=== PATIENT | female | born 1960 | race Caucasian/White ===

== ENCOUNTER 2018-07-27 13:06 | Observation (INO) ==
--- NOTE | 2018-07-27 13:50 | XR ---
EXAM DATE: 07/27/2018 1:39 PM EST AGE/SEX: 57 years / Female INDICATIONS: Short of breath and chest pain, sore throat CLINICAL DATA: This is the patient's initial encounter. Patient reports that signs and symptoms have been present for 4 - 6 days and indicates a pain score of 5/10. MEDICAL/SURGICAL HISTORY: None. None. COMPARISON: No prior exams available for comparison. FINDINGS: A single AP view of the chest demonstrates the lungs to be symmetrically aerated without evidence of mass, infiltrate or effusion. The cardiomediastinal contours are unremarkable. Osseous structures a re intact. CONCLUSION: Negative for acute process Electronically signed by: Madan Khan MD Board Certified Radiologist 07/27/2018 1:49 PM EST
[2018-07-27 13:51] LABS: Baso # (Auto) 0.1 th/mm3 (0.0-0.2); Baso % (Auto) 0.9 % (0.0-2.0); Eos # (Auto) 0.1 th/mm3 (0.0-0.4); Eos % (Auto) 1.5 % (0.0-4.0); Hematocrit 41.6 % (35.0-46.0); Hemoglobin 14.4 gm/dL (11.6-15.3); Lymph # (Auto) 2.3 th/mm3 (1.0-4.8); Lymph % (Auto) 24.5 % (9.0-44.0); Mean Corpuscular HGB Conc 34.5 % (32.0-36.0); Mean Corpuscular Hemoglobin 31.9 pg (27.0-34.0); Mean Corpuscular Volume 92.3 fL (80.0-100.0); Mean Platelet Volume 8.5 fL (7.0-11.0); Mono # (Auto) 0.7 th/mm3 (0.0-0.9); Mono % (Auto) 7.5 % (0.0-8.0); Neut # (Auto) 6.2 th/mm3 (1.8-7.7); Neut % (Auto) 65.6 % (16.0-70.0); Platelet Count 207 th/mm3 (150-450); Red Blood Count 4.51 mil/mm3 (4.00-5.30); Red Cell Distribution Width 15.1 % (11.6-17.2); White Blood Count 9.4 th/mm3 (4.0-11.0)
[2018-07-27 13:54] LABS: Alanine Aminotransferase 42 U/L (10-53); Albumin 3.3 g/dL (3.4-5.0); Anion Gap 8 meq/L (5-15); Aspartate Aminotransferase 49 U/L (15-37); Blood Urea Nitrogen 8 mg/dL (7-18); Calcium 8.6 mg/dL (8.5-10.1); Carbon Dioxide 26.3 meq/L (21.0-32.0); Chloride 109 meq/L (98-107); Glomerular Filtration Rate 74 mL/min (>89); Glucose,Random 99 mg/dL (74-106); Lipase 43 U/L (73-393); Potassium 3.7 meq/L (3.5-5.1); Sodium 143 meq/L (136-145)
[2018-07-27 13:58] LABS: Alkaline Phosphatase 118 U/L (45-117); Total Protein 6.9 g/dL (6.4-8.2)
[2018-07-27 14:17] LABS: Troponin I 1.98 ng/mL (0.02-0.05)
--- NOTE | 2018-07-27 14:23 | ED ---
HPI General Chief Complaint: Chest Pain Stated Complaint: Cardiac Time Seen by Provider: 07/27/18 13:10 Source: patient and EMS Mode of arrival: EMS Limitations: no limitations History of Present Illness HPI narrative: 57 yo F c/o shortness of breath for about three days worse with exertion. + Chest pain yesterday and day prior, intermittent, retrosternal, associated with hand paresthesias. No CP in ED today however. Pt left work early two days prior 2/2 dyspnea. + KEYES more than roughly 20 feet. No fever/ chills. No hx htn, hld or dm2. + Vaping hx. Denies family hx CAD. Sister evidently has a hx of PE. Pt also reports severe distress over past few months. Occasionally xanax has been helpful. Related Data Home Medications Medication Instructions Recorded Confirmed alprazolam [Xanax] 0.25 mg PO BID PRN 07/27/18 07/27/18 fluoxetine 40 mg PO DAILY 07/27/18 07/27/18 gabapentin 800 mg PO DAILY 07/27/18 07/27/18 quetiapine 400 mg PO BID 07/27/18 07/27/18 temazepam 30 mg PO QDRHS 07/27/18 07/27/18 Allergies Allergy/AdvReac Type Severity Reaction Status Date / Time No Known Allergies Allergy Severe UNKNOWN Uncoded 01/23/11 15:45 Review of Systems ROS: all other systems reviewed are negative [facility] Social History Social History Smoking Status: Unknown if ever smoked How Often Do You Have a Drink Containing Alcohol: Unable to Obtain Immunization History Tetanus Immunization: Unsure Exam Narrative Exam Narrative: GENERAL: 57 yo F, WNWD, mildly anxious SKIN: Focused skin assessment warm/dry. HEAD: Atraumatic. Normocephalic. EYES: Pupils equal and round. No scleral icterus. No injection or drainage. ENT: No nasal bleeding or discharge. Mucous membranes pink and moist. NECK: Trachea midline. No JVD. CARDIOVASCULAR: Regular rate and rhythm. No murmur appreciated. RESPIRATORY: No accessory muscle use. Clear to auscultation. Breath sounds equal bilaterally. GASTROINTESTINAL: Abdomen soft, non-tender, nondistended. Hepatic and splenic margins not palpable. MUSCULOSKELETAL: No obvious deformities. No clubbing. No cyanosis. No edema. NEUROLOGICAL: Awake and alert. No obvious cranial nerve deficits. Motor grossly within normal limits. Normal speech. PSYCHIATRIC: Appropriate mood and affect; insight and judgment normal. Course Initial Documented Vital Signs Temperature 98.3 F 07/27/18 13:08 Pulse Rate 102 H 07/27/18 13:08 Respiratory Rate 22 07/27/18 13:08 Blood Pressure 155/100 H 07/27/18 13:08 Pulse Oximetry 98 07/27/18 13:08 Last Documented Vital Signs Temperature 98.3 F 07/27/18 13:08 Pulse Rate 108 H 07/27/18 14:49 Respiratory Rate 20 07/27/18 14:49 Blood Pressure 134/100 H 07/27/18 14:49 Pulse Oximetry 100 07/27/18 14:49 Critical Care Time Critical Care Time: Yes Total Critical Care Time: 35 Attestation: Aggregate critical care time was 35 minutes. Time to perform other separately billable procedures was not included in the critical care time. My time did not include minutes spent treating any other patients simultaneously or on activities that did not directly contribute to the patient's treatment. The services I provided to this patient were to treat and/or prevent clinically significant deterioration that could result in: myocardial infarction, disability I provided critical care services requiring my management, as noted below: Chart data review, documentation time, medication orders and management, vital sign assessments/reviewing monitor data, ordering and reviewing lab tests, ordering and interpreting/reviewing x-rays and diagnostic studies, care of the patient and discussion of the patient with the admitting physicians. Medical Decision Making MDM Narrative Medical decision making narrative: EKG sinus, rate 99, no ST elevation, normal axis Tn 1.98 - Pt has no chest pain in ED however does have shortness of breath, which is also the chief complaint and reason for coming to ED today. CBC essentially normal CMP essentially normal BNP 220 Lipase normal Heparin started in ED. Nitro, aspirin, metoprolol started. d/w Dr Martinez: NPO p midnight, 2d echo, iv lasix, heparin, nitro, asa d/w patient who is amenable with plan Call to admitted service at 230pm. d/w Dr Esparza for [facility] at 250pm, CT pulmonary angiogram pending at time of sign out. Medical Screen Exam Complete: Yes Emergency Medical Condition: Yes Lab Data Result diagrams: 07/27/18 13:22 07/27/18 13:22 Lab Results 07/27/18 07/27/1818 Range/Units 13:22 13:22 13:22 WBC 9.4 (4.0-11.0) th/mm3 RBC 4.51 (4.00-5.30) mil/mm3 Hgb 14.4 (11.6-15.3) gm/dL Hct 41.6 (35.0-46.0) % MCV 92.3 (80.0-100.0) fL MCH 31.9 (27.0-34.0) pg MCHC 34.5 (32.0-36.0) % RDW 15.1 (11.6-17.2) % Plt Count 207 (150-450) th/mm3 MPV 8.5 (7.0-11.0) fL Neut % (Auto) 65.6 (16.0-70.0) % Lymph % (Auto) 24.5 (9.0-44.0) % Hudspeth % (Auto) 7.5 (0.0-8.0) % Eos % (Auto) 1.5 (0.0-4.0) % Baso % (Auto) 0.9 (0.0-2.0) % Neut # (Auto) 6.2 (1.8-7.7) th/mm3 Lymph # (Auto) 2.3 (1.0-4.8) th/mm3 Hudspeth # (Auto) 0.7 (0.0-0.9) th/mm3 Eos # (Auto) 0.1 (0.0-0.4) th/mm3 Baso # (Auto) 0.1 (0.0-0.2) th/mm3 WBC Differential . Differential Comment Auto diff final Sodium 143 (136-145) meq/L Potassium 3.7 (3.5-5.1) meq/L Chloride 109 H (98-107) meq/L Carbon Dioxide 26.3 (21.0-32.0) meq/L Anion Gap 8 (5-15) meq/L BUN 8 (7-18) mg/dL Creatinine 0.80 (0.50-1.00) mg/dL Estimated GFR 74 L (>89) mL/min Random Glucose 99 (74-106) mg/dL Calcium 8.6 (8.5-10.1) mg/dL Magnesium 2.0 (1.5-2.5) mg/dL Total Bilirubin 0.4 (0.2-1.0) mg/dL AST 49 H (15-37) U/L ALT 42 (10-53) U/L Alkaline Phosphatase 118 H (45-117) U/L Troponin I 1.98 H* (0.02-0.05) ng/mL B-Natriuretic Peptide 220 H (0-100) pg/mL Total Protein 6.9 (6.4-8.2) g/dL Albumin 3.3 L (3.4-5.0) g/dL Lipase 43 L (73-393) U/L Urine Opiates Screen (Neg) Ur Barbiturates Screen (Neg) Ur Amphetamines Screen (Neg) U Benzodiazepines Scrn (Neg) Urine Cocaine Screen (Neg) U Cannabinoids Screen (Neg) Serum Alcohol Less than 3 (0-5) mg/dL 07/27/18 Range/Units 14:06 WBC (4.0-11.0) th/mm3 RBC (4.00-5.30) mil/mm3 Hgb (11.6-15.3) gm/dL Hct (35.0-46.0) % MCV (80.0-100.0) fL MCH (27.0-34.0) pg MCHC (32.0-36.0) % RDW (11.6-17.2) % Plt Count (150-450) th/mm3 MPV (7.0-11.0) fL Neut % (Auto) (16.0-70.0) % Lymph % (Auto) (9.0-44.0) % Hudspeth % (Auto) (0.0-8.0) % Eos % (Auto) (0.0-4.0) % Baso % (Auto) (0.0-2.0) % Neut # (Auto) (1.8-7.7) th/mm3 Lymph # (Auto) (1.0-4.8) th/mm3 Hudspeth # (Auto) (0.0-0.9) th/mm3 Eos # (Auto) (0.0-0.4) th/mm3 Baso # (Auto) (0.0-0.2) th/mm3 WBC Differential Differential Comment Sodium (136-145) meq/L Potassium (3.5-5.1) meq/L Chloride (98-107) meq/L Carbon Dioxide (21.0-32.0) meq/L Anion Gap (5-15) meq/L BUN (7-18) mg/dL Creatinine (0.50-1.00) mg/dL Estimated GFR (>89) mL/min Random Glucose (74-106) mg/dL Calcium (8.5-10.1) mg/dL Magnesium (1.5-2.5) mg/dL Total Bilirubin (0.2-1.0) mg/dL AST (15-37) U/L ALT (10-53) U/L Alkaline Phosphatase (45-117) U/L Troponin I (0.02-0.05) ng/mL B-Natriuretic Peptide (0-100) pg/mL Total Protein (6.4-8.2) g/dL Albumin (3.4-5.0) g/dL Lipase (73-393) U/L Urine Opiates Screen Neg (Neg) Ur Barbiturates Screen Neg (Neg) Ur Amphetamines Screen Neg (Neg) U Benzodiazepines Scrn Pos H (Neg) Urine Cocaine Screen Neg (Neg) U Cannabinoids Screen Neg (Neg) Serum Alcohol (0-5) mg/dL Imaging Data Radiologist's impression: Chest X-Ray 07/27/18 13:19 CONCLUSION: Negative for acute process Discharge Plan Discharge Disposition Patient Disposition: ED Admit(ED Internal Use Only) Discharge Order Discharge Orders: ED Use Only Admit Order (Routine); Ordered 07/27/18 Ordered By: Jose Kang Physicians Team ED Provider: Jose Kang Primary Care Provider: UNKNOWN, Rxs /Orders / Referrals /Forms Prescriptions: No Action fluoxetine 40 mg Capsule 40 mg PO DAILY RF: 0 alprazolam [Xanax] 0.25 mg Tablet 0.25 mg PO BID PRN (Reason: Anxiety) RF: 0 gabapentin 800 mg Tablet 800 mg PO DAILY RF: 0 temazepam 30 mg Capsule 30 mg PO QDRHS RF: 0 quetiapine 400 mg Tablet 400 mg PO BID RF: 0 Discharge Instructions Patient Printed Instructions: Chest Pain (ED) Status ED Status: With Doctor
[2018-07-27] MEDS ORDERED: Heparin 10,000 UNITS/10 ML Vial (for IV use) IV.PUSH STA (14:25)
[2018-07-27] MEDS ORDERED: Heparin Drip 25,000 UNIT/250 ML BAG IV.CONT PRN (14:25)
[2018-07-27 14:27] LABS: Amphetamine Screen,Urine Neg (Neg); Barbiturate Screen,Urine Neg (Neg); Cannabinoid Screen,Urine Neg (Neg); Cocaine Screen,Urine Neg (Neg)
[2018-07-27 14:29] LABS: Opiate Screen,Urine Neg (Neg)
[2018-07-27 15:26] LABS: Activated Partial Thrombo Time 27.5 sec (23.4-31.7)
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
[2018-07-27] MEDS ORDERED: Acetaminophen 500 MG Tablet PO PRN (15:47)
[2018-07-27] MEDS: Metoprolol Inj 5 MG/5 ML Vial IV.PUSH SCH ×3 (16:01→16:39)
--- NOTE | 2018-07-27 17:10 | CT ---
EXAM DATE: 07/27/2018 5:01 PM EST AGE/SEX: 57 years / Female INDICATIONS: Epigastric pain today. CLINICAL DATA: This is the patient's initial encounter. Patient reports that signs and symptoms have been present for 1 day and indicates a pain score of 7/10. MEDICAL/SURGICAL HISTORY: None. None. RADIATION DOSE: 10.7 CTDI (mGy) COMPARISON: No prior exams available for comparison. TECHNIQUE: Volumetric scanning was performed using a multi-row detector CT scanner during bolus infu fabrizio of 81 ml Omnipaque 350 (iohexol) nonionic water-soluble contrast as a single exam dose. The huey a was post processed with a variety of visualization algorithms including full volume maximum intensi ty projection and sliding thin slab reformation. Using automated exposure control and adjustment of t he mA and/or kV according to patient size, radiation dose was kept as low as reasonably achievable to obtain optimal diagnostic quality images. DICOM format image data is available electronically for r eview and comparison. FINDINGS: Pulmonary Arteries: Multiple pulmonary emboli are noted within the upper lobes bilaterally, right mi ddle lobe and bilateral lower lobes. Lung: Minimal focal patchiness is noted within the right upper lobe consistent with infiltrate or po ssible infarct. Underlying true pulmonary nodule is difficult to rule out. Follow-up CT after treatme nt for the acute problem may be helpful to confirm resolution of the nodular densities within the rig ht upper lobe. The largest measures 9 mm. Effusion: None. Mediastinum: No evidence of mediastinal or hilar adenopathy. Other: The axilla is unremarkable. The liver is enlarged. CONCLUSION: 1. Multiple pulmonary emboli are noted within the upper lobes bilaterally, right middle lobe and prachi ateral lower lobes. 2. Minimal focal patchiness is noted within the right upper lobe consistent with infiltrate or possi ble infarct. Underlying true pulmonary nodule is difficult to rule out. Follow-up CT after treatment for the acute problem may be helpful to confirm resolution of the nodular densities within the right upper lobe. The largest measures 9 mm. 3. Hepatomegaly. Electronically signed by: Dhruv Christine MD Board Certified Radiologist 07/27/2018 5:09 PM EST
[2018-07-27 17:32] LABS: Chol/HDL Ratio 4.41 Ratio; HDL Cholesterol 57.7 mg/dL (40.0-60.0); Thyroid Stimulating Hormone 3.2 uIU/mL (0.358-3.740)
[2018-07-27 17:39] LABS: Troponin I 2.18 ng/mL (0.02-0.05)
[2018-07-27 17:54] LABS: CKMB Percent 3.2 % (0.0-4.0); Creatine Kinase MB 10.2 ng/mL (0.5-3.6)
--- NOTE | 2018-07-27 20:08 | US ---
EXAM DATE: 07/27/2018 8:05 PM EST AGE/SEX: 57 years / Female INDICATIONS: Newly diagnosed pulmonary embolism. Patient has epigastric pain. CLINICAL DATA: This is the patient's initial encounter. Patient reports that signs and symptoms have been present for 1 day and indicates a pain score of 0/10. MEDICAL/SURGICAL HISTORY: Hypertension. Bipolar disorder. Anxiety. PTSD. section. COMPARISON: [facility], [facility] PULMONARY W CONTRAST W 3D, 07/27/2018. . TECHNIQUE: Venous ultrasound of both lower extremities was performed from the inguinal ligament to t he proximal calf. Real-time, color Doppler and spectral tracing, compression and augmentation techni ques were used. FINDINGS: Right Leg: Normal compression of the deep venous system from the inguinal region to the proximal jak f. No echogenic clot is seen. Normal response of the venous system to augmentation and respiration. Left Leg: Normal compression of the deep venous system from the inguinal region to the proximal calf . No echogenic clot is seen. Normal response of the venous system to augmentation and respiration. Other: None. CONCLUSION: 1. Negative exam with no evidence of deep venous thrombosis. Electronically signed by: Marquise Villarreal MD Board Certified Radiologist 07/27/2018 8:07 PM EST
[2018-07-27] MEDS ORDERED: Gabapentin 400 MG Capsule PO SCH (21:00)
[2018-07-27] MEDS ORDERED: Temazepam 15 MG Capsule PO SCH (21:00)
[2018-07-27] MEDS: Metoprolol Tartrate 25 MG Tablet PO SCH (21:09)
[2018-07-27 21:43] LABS: Hemoglobin A1c 5.5 % (4.3-6.0)
[2018-07-28 05:08] VITALS: RESP 19
[2018-07-28 06:33] LABS: Hematocrit 38.1 % (35.0-46.0); Mean Corpuscular HGB Conc 34.1 % (32.0-36.0); Mean Corpuscular Volume 91.1 fL (80.0-100.0); Mean Platelet Volume 8.9 fL (7.0-11.0); Platelet Count 190 th/mm3 (150-450); Red Blood Count 4.18 mil/mm3 (4.00-5.30); White Blood Count 7.5 th/mm3 (4.0-11.0)
[2018-07-28 06:57] LABS: Calcium 8.4 mg/dL (8.5-10.1); Carbon Dioxide 26.3 meq/L (21.0-32.0); Potassium 3.4 meq/L (3.5-5.1)
[2018-07-28] MEDS: Metoprolol Tartrate 25 MG Tablet PO SCH (08:00)
[2018-07-28] MEDS ORDERED: Gabapentin 400 MG Capsule PO SCH (09:00)
[2018-07-28] MEDS ORDERED: FLUoxetine 20 MG Capsule PO SCH (09:00)
--- NOTE | 2018-07-28 09:03 | P.CONCA ---
History of Present Illness Primary Care Provider: UNKNOWN Chief Complaint: SOB History of Present Illness: 57-year-old female with bipolar disorder who presented for chest pain. The patient states she had sudden onset of sharp chest discomfort last Friday that has been intermittent and mostly constant since that time. Chest pain is worse when she takes a deep breath. She has associated shortness of breath. Troponin 1.98, 2.18. EKG with NSR, Q wave and T wave inversion in III. chest CTA with multiple bilateral pulmonary emboli. She denies any recent prolonged immobilization or travel. She does report that she has a sister with PEs as well. Primary team is alma Knox. Review of Systems All other systems reviewed negative except as stated in HPI PMFSH - History History 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, Medical Record - Medical History Medical History: Medical History (Last Updated 07/27/18 @ 16:41 by Sanchez Esparza III, MD, R2) Anxiety Bipolar disorder Depression Elevated BP without diagnosis of hypertension PTSD (post-traumatic stress disorder) - Surgical History Surgical History: Surgical History (Last Updated 07/27/18 @ 15:25 by Sanchez Esparza III, MD, R2) H/O section - Family History Family History: Family History (Last Updated 07/27/18 @ 15:27 by Sanchez Esparza III, MD, R2) Mother Renal failure Mother Alcohol abuse Father Cirrhosis of liver not due to alcohol - Tobacco History Second Hand Smoke Exposure: No Tobacco Use In Past 30 Days: No Smoking Status: Current every day smoker Tobacco Type: E-Cigarettes - Alcohol History How Often Do You Have a Drink Containing Alcohol: 2 to 3 times a week - Substance Use History Substance History: No History of Abuse - Travel History History of Recent Travel: No Recent Travel in the [place] Within the Last 8 Weeks: No Recent Travel Out of the Country Within the Last 8 Weeks: No - Immunization History Tetanus Immunization: Unsure Medications and Allergies Allergies Allergy/AdvReac Type Severity Reaction Status Date / Time No Known Allergies Allergy Severe UNKNOWN Uncoded 01/23/11 15:45 Home Medications Medication Instructions Recorded Confirmed Type alprazolam [Xanax] 0.25 mg PO BID PRN 07/27/18 07/27/18 History fluoxetine 40 mg PO DAILY 07/27/18 07/27/18 History gabapentin 800 mg PO DAILY 07/27/18 07/27/18 History quetiapine 400 mg PO BID 07/27/18 07/27/18 History temazepam 30 mg PO QDRHS 07/27/18 07/27/18 History Active Medications: Active Medications Acetaminophen (Tylenol) 500 mg PO Q4H PRN PRN Reason: HEADACHE Apixaban (Eliquis) 10 mg PO BID [facility] Stop: 08/04/18 09:00 Atorvastatin Calcium (Lipitor) 40 mg PO HS [facility] Last Admin: 07/27/18 21:09 Dose: 40 mg Fluoxetine HCl (Prozac) 40 mg PO DAILY [facility] Last Admin: 07/28/18 08:00 Dose: 40 mg Gabapentin (Neurontin) 800 mg PO HS [facility] Last Admin: 07/27/18 21:08 Dose: 800 mg Heparin Sodium/Dextrose (Heparin/D5w 25,000 U/250 Ml) 25,000 unit in 250 mls @ 0 mls/hr IV.CONT TITRATE PRN; Protocol PRN Reason: Per Protocol Stop: 07/28/18 09:00 Last Titration: 07/28/18 07:02 Dose: 1,000 units/hr, 10 mls/hr Metoprolol Tartrate (Lopressor) 25 mg PO BID [facility] Last Admin: 07/28/18 08:00 Dose: 25 mg Nitroglycerin (Nitro-Bid 2% Oint) 1 inch TOPICAL Q6HR PRN PRN Reason: CHEST PAIN Ondansetron HCl (Zofran Inj) 4 mg IV.PUSH Q6H PRN PRN Reason: NAUSEA Pantoprazole Sodium (Protonix) 40 mg PO DAILY [facility] Last Admin: 07/28/18 08:00 Dose: 40 mg Quetiapine Fumarate (Seroquel) 400 mg PO HS [facility] Last Admin: 07/27/18 22:05 Dose: 400 mg Sodium Chloride (Ns Flush) 2 ml IV.FLUSH BID [facility] Last Admin: 07/28/18 08:00 Dose: 2 ml Sodium Chloride (Ns Flush) 2 ml IV.FLUSH PRN PRN PRN Reason: FLUSH AFTER USING IV ACCESS Temazepam (Restoril) 30 mg PO HS [facility] Last Admin: 07/27/18 21:09 Dose: 30 mg Exam Vital signs: Vital Signs 07/27/18 13:08 07/27/18 13:25 07/27/18 13:55 Temperature 98.3 F Pulse Rate 102 H 97 H Respiratory Rate 22 18 Blood Pressure 155/100 H Pulse Oximetry 98 98 98 07/27/18 14:49 07/27/18 15:48 07/27/18 16:05 Temperature Pulse Rate 108 H 85 84 Respiratory Rate 20 19 Blood Pressure 134/100 H 159/102 H Pulse Oximetry 100 07/27/18 16:21 07/27/18 19:00 07/27/18 20:00 Temperature Pulse Rate 84 74 94 H Respiratory Rate 18 Blood Pressure 140/87 Pulse Oximetry 98 07/27/18 20:11 07/27/18 21:00 07/27/18 22:00 Temperature 98.9 F Pulse Rate 92 H 96 H 92 H Respiratory Rate 20 Blood Pressure 138/101 H Pulse Oximetry 96 07/27/18 23:00 07/28/18 00:00 07/28/18 00:38 Temperature Pulse Rate 90 80 Respiratory Rate Blood Pressure 84/65 L Pulse Oximetry 07/28/18 00:40 07/28/18 01:00 07/28/18 02:08 Temperature 98.7 F Pulse Rate 79 78 76 Respiratory Rate 17 Blood Pressure 104/72 Pulse Oximetry 96 07/28/18 03:04 07/28/18 04:00 Temperature 98.7 F Pulse Rate 76 89 Respiratory Rate 19 Blood Pressure 121/86 Pulse Oximetry 96 Intake & Output 07/27/18 07/28/18 07/28/18 18:59 06:59 18:59 Intake Total 120 / 120 420 / 420 Output Total 300 / 300 950 / 950 Balance -180 / -180 -530 / -530 Weight 180 lb 193 lb 12.581 oz Intake: Oral 120 / 120 420 / 420 Output: Urine 300 / 300 950 / 950 Narrative: GENERAL: Well-developed well-nourished. In no acute distress. NECK: No carotid bruits. No JVD. CARDIOVASCULAR: Regular rate and rhythm. No murmur appreciated. RESPIRATORY: No accessory muscle use. Clear to auscultation. Breath sounds equal bilaterally. MUSCULOSKELETAL: No clubbing or cyanosis. No edema. NEUROLOGICAL: Awake and alert. Normal speech. Results 07/28/18 04:51 07/28/18 04:51 Cardiac Enzymes 07/27/18 07/27/18 07/27/18 Range/Units 13:22 13:22 16:38 AST 49 H (15-37) U/L CK-MB (CK-2) 10.2 H (0.5-3.6) ng/mL Troponin I 1.98 H* 2.18 H* D (0.02-0.05) ng/mL B-Natriuretic Peptide 220 H (0-100) pg/mL 07/28/18 Range/Units 04:51 AST (15-37) U/L CK-MB (CK-2) (0.5-3.6) ng/mL Troponin I (0.02-0.05) ng/mL B-Natriuretic Peptide 179 H (0-100) pg/mL Coagulation 07/27/18 07/27/18 07/27/18 Range/Units 13:22 14:32 21:12 PT 10.0 (9.8-11.6) sec APTT 27.5 46.0 H D (23.4-31.7) sec B-Natriuretic Peptide 220 H (0-100) pg/mL 07/28/18 07/28/18 Range/Units 04:51 04:51 PT (9.8-11.6) sec APTT 50.8 H (23.4-31.7) sec B-Natriuretic Peptide 179 H (0-100) pg/mL Lipids 07/27/18 Range/Units 16:38 Triglycerides 393 H (42-150) mg/dL Cholesterol 255 H (120-200) mg/dL HDL Cholesterol 57.7 (40.0-60.0) mg/dL Cholesterol/HDL Ratio 4.41 Ratio CBC 07/27/18 07/28/18 Range/Units 13:22 04:51 WBC 9.4 7.5 (4.0-11.0) th/mm3 RBC 4.51 4.18 (4.00-5.30) mil/mm3 Hgb 14.4 13.0 (11.6-15.3) gm/dL Hct 41.6 38.1 (35.0-46.0) % Plt Count 207 190 (150-450) th/mm3 Neut # (Auto) 6.2 (1.8-7.7) th/mm3 Lymph # (Auto) 2.3 (1.0-4.8) th/mm3 Bland # (Auto) 0.7 (0.0-0.9) th/mm3 Eos # (Auto) 0.1 (0.0-0.4) th/mm3 Baso # (Auto) 0.1 (0.0-0.2) th/mm3 Comprehensive Metabolic Panel 07/27/18 07/28/18 Range/Units 13:22 04:51 Sodium 143 141 (136-145) meq/L Potassium 3.7 3.4 L (3.5-5.1) meq/L Chloride 109 H 106 (98-107) meq/L Carbon Dioxide 26.3 26.3 (21.0-32.0) meq/L BUN 8 11 (7-18) mg/dL Creatinine 0.80 0.72 (0.50-1.00) mg/dL Calcium 8.6 8.4 L (8.5-10.1) mg/dL AST 49 H (15-37) U/L ALT 42 (10-53) U/L Alkaline Phosphatase 118 H (45-117) U/L Total Protein 6.9 (6.4-8.2) g/dL Albumin 3.3 L (3.4-5.0) g/dL Intake and Output 07/27/18 07/28/18 07/28/18 22:59 06:59 14:59 Intake Total 120 / 120 420 / 420 Output Total 300 / 300 950 / 950 Balance -180 / -180 -530 / -530 Intake: Oral 120 / 120 420 / 420 Output: Urine 300 / 300 950 / 950 Other: Weight 193 lb 12.581 oz - Imaging and Cardiology Imaging: Impressions Venous Doppler Study 07/27/18 00:00 CONCLUSION: 1. Negative exam with no evidence of deep venous thrombosis. Chest X-Ray 07/27/18 13:19 CONCLUSION: Negative for acute process Chest CTA 07/27/18 14:09 CONCLUSION: 1. Multiple pulmonary emboli are noted within the upper lobes bilaterally, right middle lobe and bilateral lower lobes. 2. Minimal focal patchiness is noted within the right upper lobe consistent with infiltrate or possible infarct. Underlying true pulmonary nodule is difficult to rule out. Follow-up CT after treatment for the acute problem may be helpful to confirm resolution of the nodular densities within the right upper lobe. The largest measures 9 mm. 3. Hepatomegaly. Assessment and Plan - Plan 57-year-old female with bipolar disorder who presented for chest pain, had troponin elevation, but found to have multiple bilateral PEs. Elevated troponin: Demand mediated secondary to PEs, started on Eliquis. Check echocardiogram to eval right heart. No plans for LHC w/ PEs. Please call with questions. Discussed Condition With: Patient, Dr. Martinez - Attending Attestation Mildly elevated troponin is secondary to demand mediated event related to pulmonary embolism Anticoagulation Recommend bilateral lower extremity venous Doppler ultrasound studies, if significant thrombotic burden, especially at the common femoral vein or above, could consider removable inferior vena cava filter to prevent further large pulmonary embolism. If inferior vena cava filter would be necessary, contact me directly and I will place the filter in the cardiac catheterization lab. No need for cardiac catheterization to rule out obstructive coronary disease. We can consider an outpatient Lexiscan after recovery in a month or 2 on anticoagulation. Transthoracic echocardiogram to assess right ventricle
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
--- NOTE | 2018-07-28 12:18 | P.PNFP ---
Subjective Interval history: NAEON. Pt CP has resolved. There is no SOB. Discussed PE findings on CTA with pt and how it was causing right heart strain. Discussed the need to start Eliquis today and stay on that for at least 6 months. There appears to be no inciting event; however, pt's sister had a PE in 2013 at age 60 and pt herself had two spontaneous miscarriages. We are ordering hypercoagulable lab set and advised pt to have her PCP request results in [address] Miller, psychiatry saw her today and has signed off. Denies N/V/D, abdominal or leg pain. <Sanchez Esparza III - 07/28/18 19:14> Results - Labs Result diagrams: 07/28/18 04:51 07/28/18 04:51 <Julio Elaine - 07/29/18 08:32> Abnormal lab results 07/27/18 07/27/18 07/27/18 Range/Units 13:22 13:22 14:06 APTT (23.4-31.7) sec Potassium (3.5-5.1) meq/L Chloride 109 H (98-107) meq/L Estimated GFR 74 L (>89) mL/min Calcium (8.5-10.1) mg/dL AST 49 H (15-37) U/L Alkaline Phosphatase 118 H (45-117) U/L Total Creatine Kinase (26-192) U/L CK-MB (CK-2) (0.5-3.6) ng/mL Troponin I 1.98 H* (0.02-0.05) ng/mL B-Natriuretic Peptide 220 H (0-100) pg/mL Albumin 3.3 L (3.4-5.0) g/dL Triglycerides (42-150) mg/dL Cholesterol (120-200) mg/dL LDL Cholesterol, Calc (0-99) mg/dL Lipase 43 L (73-393) U/L U Benzodiazepines Scrn Pos H (Neg) 07/27/18 07/27/18 07/28/18 Range/Units 16:38 21:12 04:51 APTT 46.0 H D (23.4-31.7) sec Potassium 3.4 L (3.5-5.1) meq/L Chloride (98-107) meq/L Estimated GFR 83 L (>89) mL/min Calcium 8.4 L (8.5-10.1) mg/dL AST (15-37) U/L Alkaline Phosphatase (45-117) U/L Total Creatine Kinase 322 H (26-192) U/L CK-MB (CK-2) 10.2 H (0.5-3.6) ng/mL Troponin I 2.18 H* D (0.02-0.05) ng/mL B-Natriuretic Peptide (0-100) pg/mL Albumin (3.4-5.0) g/dL Triglycerides 393 H (42-150) mg/dL Cholesterol 255 H (120-200) mg/dL LDL Cholesterol, Calc 119 H (0-99) mg/dL Lipase (73-393) U/L U Benzodiazepines Scrn (Neg) 07/28/18 07/28/18 Range/Units 04:51 04:51 APTT 50.8 H (23.4-31.7) sec Potassium (3.5-5.1) meq/L Chloride (98-107) meq/L Estimated GFR (>89) mL/min Calcium (8.5-10.1) mg/dL AST (15-37) U/L Alkaline Phosphatase (45-117) U/L Total Creatine Kinase (26-192) U/L CK-MB (CK-2) (0.5-3.6) ng/mL Troponin I (0.02-0.05) ng/mL B-Natriuretic Peptide 179 H (0-100) pg/mL Albumin (3.4-5.0) g/dL Triglycerides (42-150) mg/dL Cholesterol (120-200) mg/dL LDL Cholesterol, Calc (0-99) mg/dL Lipase (73-393) U/L U Benzodiazepines Scrn (Neg) Short CBC 07/27/18 07/28/18 Range/Units 13:22 04:51 WBC 9.4 7.5 (4.0-11.0) th/mm3 Hgb 14.4 13.0 (11.6-15.3) gm/dL Hct 41.6 38.1 (35.0-46.0) % Plt Count 207 190 (150-450) th/mm3 BMP 07/27/18 07/28/18 13:22 04:51 Sodium 143 141 Potassium 3.7 3.4 L Chloride 109 H 106 Carbon Dioxide 26.3 26.3 BUN 8 11 Creatinine 0.80 0.72 Calcium 8.6 8.4 L Cardiac Enzymes 07/27/18 07/27/18 Range/Units 13:22 16:38 Total Creatine Kinase 322 H (26-192) U/L CK-MB (CK-2) 10.2 H (0.5-3.6) ng/mL Troponin I 1.98 H* 2.18 H* D (0.02-0.05) ng/mL Liver Function 07/27/18 Range/Units 13:22 Total Bilirubin 0.4 (0.2-1.0) mg/dL AST 49 H (15-37) U/L ALT 42 (10-53) U/L Alkaline Phosphatase 118 H (45-117) U/L Albumin 3.3 L (3.4-5.0) g/dL <Sanchez Esparza III - 07/28/18 12:18> - Imaging Impressions Venous Doppler Study 07/27/18 00:00 CONCLUSION: 1. Negative exam with no evidence of deep venous thrombosis. Chest X-Ray 07/27/18 13:19 CONCLUSION: Negative for acute process Chest CTA 07/27/18 14:09 CONCLUSION: 1. Multiple pulmonary emboli are noted within the upper lobes bilaterally, right middle lobe and bilateral lower lobes. 2. Minimal focal patchiness is noted within the right upper lobe consistent with infiltrate or possible infarct. Underlying true pulmonary nodule is difficult to rule out. Follow-up CT after treatment for the acute problem may be helpful to confirm resolution of the nodular densities within the right upper lobe. The largest measures 9 mm. 3. Hepatomegaly. <Sanchez Esparza III - 07/28/18 12:18> Physical Exam Vital signs: Vital Signs 07/28/18 09:00 07/28/18 10:00 07/28/18 11:00 Temperature Pulse Rate 80 84 77 Respiratory Rate Blood Pressure Pulse Oximetry 07/28/18 12:00 Temperature 97.8 F Pulse Rate 77 Respiratory Rate 19 Blood Pressure 145/88 H Pulse Oximetry 98 Intake & Output 07/28/18 07/29/18 07/29/18 18:59 06:59 18:59 Intake Total 200 / 200 Balance 200 / 200 Intake: IV 200 / 200 Heparin/D5W 25,000 U/250 mL 25, 200 / 200 000 unit In 250 ml @ Per Protocol IV.CONT TITRATE PRN Rx #:[id number] <Julio Elaine - 07/29/18 08:32> Vital Signs 07/27/18 13:08 07/27/18 13:25 07/27/18 13:55 Temperature 98.3 F Pulse Rate 102 H 97 H Respiratory Rate 22 18 Blood Pressure 155/100 H Pulse Oximetry 98 98 98 07/27/18 14:49 07/27/18 15:48 07/27/18 16:05 Temperature Pulse Rate 108 H 85 84 Respiratory Rate 20 19 Blood Pressure 134/100 H 159/102 H Pulse Oximetry 100 07/27/18 16:21 07/27/18 19:00 07/27/18 20:00 Temperature Pulse Rate 84 74 94 H Respiratory Rate 18 Blood Pressure 140/87 Pulse Oximetry 98 07/27/18 20:11 07/27/18 21:00 07/27/18 22:00 Temperature 98.9 F Pulse Rate 92 H 96 H 92 H Respiratory Rate 20 Blood Pressure 138/101 H Pulse Oximetry 96 07/27/18 23:00 07/28/18 00:00 07/28/18 00:38 Temperature Pulse Rate 90 80 Respiratory Rate Blood Pressure 84/65 L Pulse Oximetry 07/28/18 00:40 07/28/18 01:00 07/28/18 02:08 Temperature 98.7 F Pulse Rate 79 78 76 Respiratory Rate 17 Blood Pressure 104/72 Pulse Oximetry 96 07/28/18 03:04 07/28/18 04:00 07/28/18 08:00 Temperature 98.7 F 97.5 F L Pulse Rate 76 89 78 Respiratory Rate 19 19 Blood Pressure 121/86 136/102 H Pulse Oximetry 96 97 07/28/18 09:00 07/28/18 10:00 07/28/18 11:00 Temperature Pulse Rate 80 84 77 Respiratory Rate Blood Pressure Pulse Oximetry Intake & Output 07/27/18 07/28/18 07/28/18 18:59 06:59 18:59 Intake Total 120 / 120 420 / 420 Output Total 300 / 300 950 / 950 Balance -180 / -180 -530 / -530 Weight 81.647 kg 87.9 kg Intake: Oral 120 / 120 420 / 420 Output: Urine 300 / 300 950 / 950 <Sanchez Esparza III - 07/28/18 12:18> Narrative: GENERAL: 57 YO Af-Am female sitting up in bed in [facility]. SKIN: Warm and dry. No rash or lesions. HEAD: Normocephalic. Atraumatic. OP clear. EYES: No scleral icterus. No injection or drainage. EOMI/PERRLA. NECK: Supple, trachea midline. No JVD or lymphadenopathy. CARDIOVASCULAR: Regular rate and rhythm without murmurs, gallops, or rubs. RESPIRATORY: Breath sounds equal bilaterally. No accessory muscle use. Resting on RA. GASTROINTESTINAL: Abdomen soft, non-tender, nondistended. MUSCULOSKELETAL: No cyanosis, or edema, no LE tenderness. <Sanchez Esparza III - 07/28/18 19:14> Assessment and Plan - Assessment (1) NSTEMI (non-ST elevated myocardial infarction) Code(s): I21.4 - Non-ST elevation (NSTEMI) myocardial infarction Status: Acute (2) Chest pain Code(s): R07.9 - Chest pain, unspecified Status: Acute (3) Elevated troponin I level Code(s): R74.8 - Abnormal levels of other serum enzymes Status: Acute (4) CHF (congestive heart failure) Code(s): I50.9 - Heart failure, unspecified Status: Acute (5) Nutrition, metabolism, and development symptoms Code(s): R63.8 - Other symptoms and signs concerning food and fluid intake Status: Acute <Julio Elaine - 07/29/18 08:32> (1) NSTEMI (non-ST elevated myocardial infarction) Code(s): I21.4 - Non-ST elevation (NSTEMI) myocardial infarction Status: Acute (2) Chest pain Code(s): R07.9 - Chest pain, unspecified Status: Acute (3) Elevated troponin I level Code(s): R74.8 - Abnormal levels of other serum enzymes Status: Acute (4) CHF (congestive heart failure) Code(s): I50.9 - Heart failure, unspecified Status: Acute (5) Nutrition, metabolism, and development symptoms Code(s): R63.8 - Other symptoms and signs concerning food and fluid intake Status: Acute <Sanchez Esparza III - 07/28/18 19:05> - Assessment and Plan 57-year-old female with history of bipolar disorder, PTSD, anxiety and depression, and recent elevated blood pressure presents with sharp substernal chest pain with numbness and tingling in her hands. Troponin 1.98->2.14 and CP resolved with nitroglycerin x2. BNP 220. Original plan to take to [facility]; however, subsequent CTA found bilateral PEs. Patient admitted for observation. Pt asymptomatic today, resting comfortably on RA and stable for discharge on Eliquis at treatment dose. 1. PE with resolved CP & right heart strain -Cardiology consulted--Dr Martinez--appreciate recs -Eliquis 10 mg BID -Discontinue Heparin gtt after 1st dose of Eliquis -O2 on demand -Tele -Lopressor 25 mg BID -Normal TSH, elevated LDL and triglycerides -Nitro-bid 1 inch topical q6h PRN for CP 2. Depression and anxiety -Continue home gabapentin, quetiapine and temazepam qhs -Continue home prozac -Psych consult--appreciate recs 3. FEN/GI/PPx: Fluids: PO fluids Electrolytes: wnl, follow with BMP Nutrition: Cardiac diet GI: Protonix 40 mg PO daily PPx: as above Tylenol 650 mg q6h pain/fever PRN Zofran 4 mg IV q6h PRN nausea/vomiting Brooklynn-colace 1 Tab BID Dispo: Discharge today when arranges for Eliquis Pt SDW Noreen Elaine and Tomeka <Sanchez Esparza III - 07/28/18 19:14> - Attending Attestation The exam, history, and the medical decision-making described in the above note were completed with the assistance of the resident physician. I reviewed and agree with the findings presented. I attest that I had a [id number] encounter with the patient on the same day, and personally performed and documented my assessment and findings in the medical record. <Julio Elaine - 07/29/18 08:32>
[2018-07-28 12:20] VITALS: BP 145/88; PULSE 77; TEMP 97.8; O2SAT 98
--- NOTE | 2018-07-28 16:53 | ECG ---
Date Performed: 07/27/2018 Time Performed: 13:11:41 PTAGE: 57 years EKG: SINUS TACHYCARDIA LOW QRS VOLTAGE IN PRECORDIAL LEADS Consider POSSIBLE INFERIOR MYOCARDIAL INFARCTION-age Indeterminate. ABNORMAL ECG PREVIOUS TRACING : 03/08/2004 03.51 DOCTOR: Mati Berkowitz Interpretating Date/Time 07/28/2018 16:51:41
--- NOTE | 2018-07-28 16:54 | ECG ---
Date Performed: 07/27/2018 Time Performed: 14:28:38 PTAGE: 57 years EKG: Sinus rhythm Consider PROBABLE INFERIOR MYOCARDIAL INFARCTION-age Indeterminate. ABNORMAL ECG PREVIOUS TRACING : 07/27/2018 13.11 DOCTOR: Mati Berkowitz Interpretating Date/Time 07/28/2018 16:52:13
--- NOTE | 2018-07-28 16:55 | ECG ---
Date Performed: 07/27/2018 Time Performed: 16:34:07 PTAGE: 57 years EKG: Sinus rhythm Consider INFERIOR MYOCARDIAL INFARCTION-age Indeterminate. ABNORMAL ECG PREVIOUS TRACING : 07/27/2018 14.28 DOCTOR: Mati Berkowitz Interpretating Date/Time 07/28/2018 16:53:02
--- NOTE | 2018-07-28 17:26 | ECHRPT ---
Indication: chest pain CONCLUSIONS Normal left ventricular size. Wall thickness is normal. The left ventricular systolic function is normal with an estimated ejection fraction in the range of 55-60%. The right ventricle is moderately dilated. The right ventricular systoilc function is mildly decreased. There is a prominent moderator band observed in the right ventricle (benign finding). [id number] mitral valve regurgitation. The estimated pulmonary arterial pressure is 41 _ mmHg. The pulmonary valve is not well visualized. BP: / HR: Rhythm: Technical Quality: FINDINGS LEFT VENTRICLE Normal left ventricular size. Wall thickness is normal. The left ventricular systolic function is normal with an estimated ejection fraction in the range of 55-60%. RIGHT VENTRICLE The right ventricle is moderately dilated. The right ventricular systoilc function is mildly decreased. There is a prominent moderator band observed in the right ventricle (benign finding). LEFT ATRIUM The left atrial size is normal. RIGHT ATRIUM The right atrial size is normal. ATRIAL SEPTUM Normal atrial septal thickness without atrial level shunting by limited color doppler interrogation. AORTA The aortic root and proximal ascending aorta are normal in size on limited imaging. MITRAL VALVE [id number] mitral valve regurgitation. AORTIC VALVE Trileaflet aortic valve. No aortic valve stenosis or regurgitation. TRICUSPID VALVE The estimated pulmonary arterial pressure is 41 _ mmHg. PULMONARY VALVE The pulmonary valve is not well visualized. VESSELS The inferior vena cava is normal in size. PERICARDIUM No pericardial effusion. Andrea Martinez MD, FACC (Electronically Signed) Final Date:28 July 2018 17:24
[2018-07-30 11:50] LABS: Homocysteine (Cardiovascular) 10.9 umol/L (<10.4)
[2018-07-30 17:51] LABS: Dil Russell Viper Venom Conf ( NEGATIVE (NEGATIVE); Dil Russell Viper Venom Time M ND (CORRECTED); Lupus Anticoagulant PTT Screen 76 seconds (< OR = 40)
[2018-07-31 12:47] LABS: Factor V Leiden Mutation Negative (Negative); Protein C Antigen 100 % (70-150)
[2018-08-01 07:52] LABS: Activated Protein C Resistance 4.4 ratio (> OR = 2.1)
== END 2018-07-28 13:20 | disposition home or self-care (01) ==
LOC: NEPE 13:06 → INTOOBSV 15:03 → NEDA 15:03 → HCIS 17:39
PROVIDERS: ADMIT Family Medicine; ATTEND Family Medicine
DX: Z79.01 Long term (current) use of anticoagulants; I34.0 Nonrheumatic mitral (valve) insufficiency; I21.4 Non-ST elevation (NSTEMI) myocardial infarction; Z79.899 Other long term (current) drug therapy; F17.290 Nicotine dependence, other tobacco product, uncomplicated; R16.0 Hepatomegaly, not elsewhere classified; F41.9 Anxiety disorder, unspecified; I26.99 Other pulmonary embolism without acute cor pulmonale; F43.10 Post-traumatic stress disorder, unspecified; F31.9 Bipolar disorder, unspecified; I50.9 Heart failure, unspecified